=== PATIENT | male | born 1955 | race Caucasian/White ===

== ENCOUNTER 2018-06-27 09:14 | Emergency (ER) | payer OTHER ==
[~2018-06-27] VITALS: Ht 172.7 cm; Wt 84.8 kg
[2018-06-27] MEDS ORDERED: LOSARTAN-HCTZ1 EAC2 (09:22)
[2018-06-27] MEDS ORDERED: JANUMET XR 1001 EACH (09:23)
[2018-06-27] MEDS ORDERED: GLIPIZIDE10 MG (09:25)
[2018-06-27] MEDS ORDERED: TRUVADA 200 MG1 EACH (09:25)
== END 2018-06-27 11:23 | disposition home or self-care (01) ==
LOC: ER 09:14
DX: S00.33XA Contusion of nose, initial encounter (principal); X58.XXXA Exposure to other specified factors, initial encounter; Y93.89 Activity, other specified; Y92.89 Other specified places as the place of occurrence of the external cause; Y99.8 Other external cause status